=== PATIENT | male | born 1930 | race Caucasian/White ===

== ENCOUNTER → 2017-06-29 | Outpatient (CLI) | payer MEDICARE ==
[~2017-06-29] MED LIST: ALLOPURINOL100 MG PO; ASPIRIN325 MG PO; FOLTX TABLET1 EACH PO; GLIPIZIDE10 MG PO; HUMALOG MI100 UNIT/4 SQ; LASIX40 MG PO; LEVEMIR 3M100 UNITS/ SQ; LEVOTHYROXINE50 MCG PO; LOSARTAN POTASS50 MG PO; METOPROLOL SUCC50 MG PO; MULTAQ 400MG T400 MG PO; PLAVIX75 MG PO; PRAVASTATIN SOD40 MG PO; SIMVASTATIN20 MG PO
--- NOTE | 2017-06-29 10:00 | Diagnostic Imaging Report ---
PROCEDURE:CHEST 2 VIEWS TECHNIQUE:PA and lateral chest totaling 4 radiographs INDICATION:Dyspnea; CHF COMPARISON:[facility], , CHEST 2 VIEWS, 02/28/2013, 16:22. FINDINGS: Large cardiac silhouette with central vascular prominence. No pleural effusions. Mild bilateral pleural thickening or lipomatosis along the lateral thoracic margins. Postoperative sequela of sternotomy, contact midline wires. 2-lead pacemaker; intact leads. Anterior longitudinal ligament calcification suggesting skeletal hyperostosis. CONCLUSION: 1. Cardiomegaly with central vascular congestion. 2. Progressive cardiomegaly relative to February 2013. Dictated by: Ranjan Dillard M.D. on 06/29/2017 at 10:08 Electronically approved by: Ranjan Dillard M.D. on 06/29/2017 at 10:08
== END ==
LOC: RAD 08:45
PROVIDERS: ATTEND Internal Medicine Pulmonary Disease
DX: I50.9 Heart failure, unspecified (principal)
CPT/HCPCS: 71020

== ENCOUNTER → 2018-07-13 | Day surgery (SDC) | payer MEDICARE ==
[2018-07-11 10:20] LABS: BASOPHILS % 0.3 % (0.0-1.0); EOSINOPHILS # (AUTO) 0.1 (0.0-0.4); EOSINOPHILS % 0.8 % (0.0-6.0); HEMATOCRIT 27.3 % (38.2-49.6); LYMPHOCYTES # (AUTO) 2.3 (1.0-3.2); LYMPHOCYTES % 25.3 % (18.0-39.1); MEAN CORPUSCULAR HGB CONC 30.8 g/dL (31-35); MEAN CORPUSCULAR VOLUME 110.5 fL (81-99); MONOCYTES # (AUTO) 0.5 (0.2-0.8); NEUTROPHILS % 67.2 % (38.7-80.0); PLATELET COUNT 175 x10e3/uL (140-360); RED BLOOD COUNT 2.47 x10e6/uL (4.3-5.7); RED CELL DISTRIBUTION WIDTH 16.3 % (11.7-14.4)
[2018-07-11 10:27] LABS: HEMOGLOBIN 8.4 g/dL (14.0-18.0)
--- NOTE | 2018-07-11 10:38 | Diagnostic Imaging Report ---
EXAMINATION: CHEST 2 VIEWS INDICATION: Pre-admit. COMPARISON: Chest radiograph 06/29/2017 and chest radiograph 02/28/2013. FINDINGS: TUBES and LINES: None. LUNGS: Persistent central vascular congestion without evidence of pulmonary edema. Mild patchy bibasilar opacities, likely atelectasis. No evidence of lobar consolidation. Rounded opacity projects over the left lower lung, likely representing nipple and unchanged from radiograph on 02/28/2013. PLEURA: No pleural effusion or pneumothorax. HEART AND MEDIASTINUM: The cardiomediastinal silhouette is unchanged with cardiomegaly. Hazy pericardial margins may reflect pericardial fat or pleural thickening, unchanged. BONES AND SOFT TISSUES: No acute osseous lesion. Status post median sternotomy. There are healing left posterior eighth and ninth rib fractures, new since radiograph on 06/29/2017. UPPER ABDOMEN: No free air under the diaphragm. IMPRESSION: Cardiomegaly with central vascular congestion. No evidence of pulmonary edema. Healing left posterior eighth and ninth rib fractures, new since radiograph on 06/29/2017. Signed by: Dr. Sonal Ji MD on 07/11/2018 10:35 AM
[2018-07-11 10:39] LABS: ANION GAP 15.3 mmol/L (8-16); CALCIUM 9.1 mg/dL (8.4-10.2); CREATININE, SERUM 1.81 mg/dL (0.72-1.25); POTASSIUM 4.3 mmol/L (3.5-5.1)
[~2018-07-13] MED LIST changes: +ASPIRIN EC81 MG PO; +FENTANYL CITRATE/PF 100MCG/2 ML INJ ONE; +LEVOTHYROXINE75 MCG PO; +METOPROLOL SUC100 MG PO; +NORCO 7.5-3251 EACH PO; +NOVOLOG100 UNIT/1 SC; +PROPOFOL IV EMULSION 10 MG/ML 20 ML VIAL ONE; +TRESIBA SC; +VIT D PO
--- OUTSIDE RECORDS SUMMARY | 2018-07-13 05:12 | XMS REPORT ---
Author [facility] Address Unknown Phone Unavailable Care Team Providers Care Car Manager Name Role Phone Tiffany CORDERO Unavailable Unavailable ANGELA COOK Unavailable Unavailable Payers Payer Name Policy Type Policy Number Effective Date Expiration Date Problems This patient has no known problems. Allergies, Adverse Reactions, Alerts Allergy Name Allergy Type Status Severity Reaction(s) Onset Date Inactive Date Treating Clinician Comments No Known Allergies DA Active U 2018-05-15 00:00:00 No Known Allergies DA Active U 2018-05-07 00:00:00 No Known Allergies DA Active U 2011-08-31 00:00:00 Medications This patient has no known medications. Results Test Description Test Time Test Comments Text Results Atomic Results Result Comments CHEST 2 VIEWS 2018-07-11 10:27:00 [facility] [address] [place] [address] Patient Name: BEAR KUNZ MR #: [id number] : 1930 Age/Sex: 87/M Req #: [id number] Adm Physician: Ordered by: MAGDALENA CORDERO MD Report #: [id number] Location: OR Room/Bed: Procedure: [id number] DX/CHEST 2 VIEWS Exam Date: 07/11/18 Exam Time: 0955 REPORT STATUS: Signed EXAMINATION: CHEST 2 VIEWS INDICATION: Pre-admit. COMPARISON: Chest radiograph 06/29/2017 and chest radiograph 02/28/2013. FINDINGS: TUBES and LINES: None. LUNGS: Persistent central vascular congestion without evidence of pulmonary edema. Mild patchy bibasilar opacities, likely atelectasis. No evidence of lobar consolidation. Rounded opacity projects over the left lower lung, likely representing nipple and unchanged from radiograph on 02/28/2013. PLEURA: No pleural effusion or pneumothorax. HEART AND MEDIASTINUM: The cardiomediastinal silhouette is unchanged with cardiomegaly. Hazy pericardial margins may reflect pericardial fat or pleural thickening, unchanged. BONES AND SOFT TISSUES: No acute osseous lesion. Status post median sternotomy. There are healing left posterior eighth and ninth rib fractures, new since radiograph on 06/29/2017. UPPER ABDOMEN: No free air under the diaphragm. IMPRESSION: Cardiomegaly with central vascular congestion. No evidence of pulmonary edema. Healing left posterior eighth and ninth rib fractures, new since radiograph on 06/29/2017. Signed by: Dr. Heladio Voss MD on 07/11/2018 10:35 AM Dictated By: HELADIO VOSS MD [id number] Transcribed By: GREG on 07/11/18 1035 COPY TO: MAGDALENA CORDERO MD CHEST 2 VIEWS [place] [address] Patient Name: BEAR KUNZ MR #: [id number] : 1930 Age/Sex: 86/M Req #: [id number] Adm Physician: Ordered by: ANGELA COOK MD Report #: [id number] Location: [facility] Room/Bed: Procedure: [id number] DX/CHEST 2 VIEWS Exam Date: 06/29/17 Exam Time: 09 REPORT STATUS: Signed PROCEDURE: CHEST 2 VIEWS TECHNIQUE: PA and lateral chest totaling 4 radiographs INDICATION: Dyspnea; CHF COMPARISON: [facility], DX, CHEST 2 VIEWS, 02/28/2013, 16:22. FINDINGS: Large cardiac silhouette with central vascular prominence. No pleural effusions. Mild bilateral pleural thickening or lipomatosis along the lateral thoracic margins. Postoperative sequela of sternotomy, contact midline wires. 2-lead pacemaker; intact leads. Anterior longitudinal ligament calcification suggesting skeletal hyperostosis. CONCLUSION: 1. Cardiomegaly with central vascular congestion. 2. Progressive cardiomegaly relative to February 2013. Dictated by: Tricia Dillard M.D. on 06/29/2017 at 10:08 Electronically approved by: Tricia Dillard M.D. on 06/29/2017 at 10:08 Dictated By: TRICIA DILLARD MD [id number] Transcribed By: STAN on 06/29/17 1008 COPY TO: ANGELA COOK MD
--- NOTE | 2018-07-13 07:10 | NUR ---
SPIRITUAL CARE - Pre-Surgery Assessment: Pt in bed. Pt's and children at bedside. Pt identified as [employer]. Pt reported supportive attention from family and friends. Intervention: I provided pastoral presence, hospitality, and sympathetic listening. I acquainted pt with availability of inventory manager while hospitalized. Outcome: Pt expressed appreciation for visit. No need for follow up indicated at this time. [facility]EN[facility] D[facility] [employer] Spiritual Care Department O: [phone] Pager: [phone] ([phone] number calling from)
[2018-07-13 10:00] VITALS: BP 130/66
== END | disposition home or self-care (01) ==
LOC: OR 05:09
PROVIDERS: ATTEND Surgery
DX: K29.70 Gastritis, unspecified, without bleeding (principal); K63.89 Other specified diseases of intestine; D50.0 Iron deficiency anemia secondary to blood loss (chronic); E11.22 Type 2 diabetes mellitus with diabetic chronic kidney disease; N18.9 Chronic kidney disease, unspecified; M10.9 Gout, unspecified; I65.23 Occlusion and stenosis of bilateral carotid arteries; G47.33 Obstructive sleep apnea (adult) (pediatric); I25.810 Atherosclerosis of coronary artery bypass graft(s) without angina pectoris; E03.9 Hypothyroidism, unspecified; R53.1 Weakness; Z01.810 Encounter for preprocedural cardiovascular examination; Z01.812 Encounter for preprocedural laboratory examination; Z01.818 Encounter for other preprocedural examination; Z79.02 Long term (current) use of antithrombotics/antiplatelets; Z79.82 Long term (current) use of aspirin; Z79.4 Long term (current) use of insulin; Z95.1 Presence of aortocoronary bypass graft; Z95.2 Presence of prosthetic heart valve; Z95.0 Presence of cardiac pacemaker; Z87.891 Personal history of nicotine dependence
CPT/HCPCS: 36415 ×2; 43239; 45380; 71046; 80048; 82948; 85025; 88305; 88312; 93005; J2704

== ENCOUNTER → 2018-07-16 | Outpatient (CLI) | payer MEDICARE ==
[~2018-07-16] MED LIST changes: +DIATRIZOATE MEGL/DIATRIZOA SOD 30 ML BTL PO ONE; -FENTANYL CITRATE/PF 100MCG/2 ML INJ ONE; -PROPOFOL IV EMULSION 10 MG/ML 20 ML VIAL ONE
--- NOTE | 2018-07-16 18:24 | Diagnostic Imaging Report ---
EXAM: CT Abdomen and Pelvis WITHOUT contrast INDICATION: Digestive problems COMPARISON: None. TECHNIQUE: Abdomen and Pelvis was scanned utilizing a multidetector helical scanner without the use of IV contrast. Coronal and sagittal reformations were obtained. IV CONTRAST: None COMPLICATIONS: None RADIATION DOSE: Total DLP: 763 mGy*cm Estimated effective dose: (DLP x 0.015 x size factor) mSv CTDIvol has been reviewed. It is below the limits set by the Radiation Protocol Committee (RPC). Appropriate CT dose reduction techniques were utilized. FINDINGS: Abdomen: Lung Bases: Atelectasis. Coronary vascular calcifications, ICD, mitral annular calcifications, and probable findings of anemia visualized lower chest. Solid Organs: Subjective increased density of the liver. Cholecystectomy clips. Exophytic cyst inferior right kidney. To small to characterize exophytic hypodense and hyperdense lesions left kidney. Remainder of solid organs unremarkable. Upper GI Tract: No small bowel obstructive changes. Oral contrast extends into the colon. Vascularity: Moderate aortic vascular calcifications. 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 Lymph Nodes: No suspicious adenopathy. Other: None. Pelvis: Bladder: Unremarkable. Other: Patulous inguinal canals. Colon: Moderate stool proximal colon. Bones: Moderate degenerative changes spine. IMPRESSION: 1. No small bowel obstructive changes. 2. Moderate colonic stool. Correlation with history and age appropriate colonoscopy. 3. 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 4. Other findings as above. Signed by: Dr. Chris Choi MD on 07/16/2018 6:21 PM
== END ==
LOC: CT 15:58
PROVIDERS: ATTEND Surgery
DX: D49.0 Neoplasm of unspecified behavior of digestive system (principal)
CPT/HCPCS: 74176

== ENCOUNTER → 2021-01-19 | Outpatient (CLI) | payer MEDICARE ==
[~2021-01-19] MED LIST changes: -DIATRIZOATE MEGL/DIATRIZOA SOD 30 ML BTL PO ONE
== END ==
LOC: RAD 11:40
PROVIDERS: ATTEND Internal Medicine
DX: M54.5 Low back pain (principal)
CPT/HCPCS: 72100